=== PATIENT | male | born 1980 | race Hispanic/Latino ===

== ENCOUNTER 2018-10-18 17:06 | Emergency (ER) | payer OTHER ==
[2018-10-18 17:37] LABS: APPEARANCE,URINE Clear (CLEAR); BILIRUBIN,URINE Negative (NEGATIVE); COLOR,URINE Dark Yellow (YELLOW); GLUCOSE, URINE (UA) Negative (NEGATIVE); KETONES,URINE Negative (NEGATIVE); LEUKOCYTE ESTERASE ,URINE Negative (NEGATIVE); NITRATE,URINE Negative (NEGATIVE); OCCULT BLOOD,URINE Negative (NEGATIVE); PH,URINE 6.5 (5.0-8.0); PROTEIN,URINE POS 1+ mg/dL (NEGATIVE)
[2018-10-18 17:41] LABS: BASOPHILS % (AUTO) 0.9 % (0.0-5.0); EOSINOPHILS % (AUTO) 0.7 % (0.0-8.0); LYMPHOCYTES % (AUTO) 28.5 % (21.0-51.0); MEAN CORPUSCULAR HGB CONC 34.8 g/dL (32.0-36.0); MEAN CORPUSCULAR VOLUME 97.7 fL (79-99); MONOCYTES % (AUTO) 7.1 % (3.0-13.0); NEUTROPHILS % (AUTO) 62.8 % (40.0-77.0); PLATELET COUNT (AUTO) 171 K/uL (130-400); RED BLOOD CELL COUNT(AUTO) 4.92 MIL/uL (4.50-6.20); RED CELL DISTRIBUTION WIDTH 15.3 % (11.0-15.5); WHITE BLOOD COUNT (AUTO) 6.8 K/uL (4.8-10.8)
[2018-10-18 17:42] LABS: CARBON DIOXIDE 26 mmol/L (21-32); CHLORIDE 102 mmol/L (101-111); CREATININE 0.9 mg/dL (0.5-1.5); GLOMERULAR FILTR. RATE CALC 100 mL/min (>60); GLUCOSE,RANDOM 161 mg/dL (70-105); POTASSIUM 3.2 mmol/L (3.5-5.1); SODIUM SERUM 142 mmol/L (136-145); UREA NITROGEN, BLOOD 12 mg/dL (7-18)
[2018-10-18 17:45] LABS: AMPHET/METH SCREEN,URINE NEGATIVE (NEGATIVE); BARBITURATE SCREEN, URINE NEGATIVE (NEGATIVE); BENZODIAZEPINES SCREEN,URINE NEGATIVE (NEGATIVE); CANNABINOID SCREEN,URINE POSITIVE (NEGATIVE); COCAINE SCREEN,URINE NEGATIVE (NEGATIVE); OPIATE SCREEN,URINE NEGATIVE (NEGATIVE); PHENCYCLIDINE SCREEN,URINE NEGATIVE (NEGATIVE)
[2018-10-18 17:48] LABS: BACTERIA,URINE Few /HPF (None Seen); MUCUS,URINE Few LPF (None Seen); SQUAMOUS EPITHELIAL CELL,UR 0-2 /HPF (0-2)
[2018-10-18 17:55] LABS: ALANINE AMINOTRANSFERASE 127 U/L (12-78); ALBUMIN 3.9 g/dL (3.5-5.0); ASPARTATE AMINOTRANSFERASE 166 U/L (10-37); BILIRUBIN,TOTAL 1.5 mg/dL (0.2-1.0); TOTAL PROTEIN, SERUM 8.4 g/dL (6.0-8.3)
[2018-10-18 17:58] LABS: ACETAMINOPHEN < 1 mcg/mL (10-29); SALICYLATE < 2.8 mg/dL (2.8-20.0)
[2018-10-18 17:59] LABS: ALCOHOL, BLOOD 308 mg/dL (0-10); CREATINE KINASE, TOTAL 499 U/L (21-232)
[2018-10-18] MEDS ORDERED: THIAMINE HCL 100 MG/ML 2ML VIAL ONE (18:06)
[2018-10-18] MEDS ORDERED: POTASSIUM CHLORIDE 20 MEQ ERTAB PO ONE (18:07)
[2018-10-18] MEDS ORDERED: SODIUM CHLORIDE 0.9% 1000ML 1,000 ML IV ONE (18:07)
[2018-10-18] MEDS ORDERED: ONDANSETRON HCL 4 MG/2 ML VIAL ONE (22:59)
[2018-10-19] MEDS ORDERED: ONDANSETRON HCL 4 MG/2 ML VIAL ONE (09:44)
== END 2018-10-19 13:47 | disposition home or self-care (01) ==
LOC: EDH 17:06
DX: F10.10 Alcohol abuse, uncomplicated (principal); F33.8 Other recurrent depressive disorders; F41.9 Anxiety disorder, unspecified; I10 Essential (primary) hypertension; F20.9 Schizophrenia, unspecified; Z72.0 Tobacco use; Z88.1 Allergy status to other antibiotic agents; Y90.9 Presence of alcohol in blood, level not specified
CPT/HCPCS: 36415 ×2; 80053; 80305; 81001; 82550; 85025; 93005; 96374; 96375; 96376; 99285; G0480 ×4; G0481; J2405 ×2; J3411; J7030

== ENCOUNTER 2019-04-16 10:41 | Emergency (ER) | payer OTHER ==
[2019-04-16 11:13] LABS: CARBON DIOXIDE 30 mmol/L (21-32); CHLORIDE 103 mmol/L (101-111); GLOMERULAR FILTR. RATE CALC 88 mL/min (>60); GLUCOSE,RANDOM 185 mg/dL (70-105); POTASSIUM 3.3 mmol/L (3.5-5.1); SODIUM SERUM 144 mmol/L (136-145); UREA NITROGEN, BLOOD 15 mg/dL (7-18)
[2019-04-16 11:17] LABS: ALANINE AMINOTRANSFERASE 47 U/L (12-78); ALBUMIN 4.2 g/dL (3.5-5.0); AMMONIA 24 umol/L (11-32); ASPARTATE AMINOTRANSFERASE 45 U/L (10-37); BILIRUBIN,TOTAL 0.8 mg/dL (0.2-1.0); TOTAL PROTEIN, SERUM 8.5 g/dL (6.0-8.3)
[2019-04-16 11:24] LABS: SALICYLATE < 2.8 mg/dL (2.8-20.0)
[2019-04-16 11:25] LABS: ACETAMINOPHEN 32 mcg/mL (10-29)
[2019-04-16 11:37] LABS: BASOPHILS % (AUTO) 0.5 % (0.0-5.0); EOSINOPHILS % (AUTO) 0.8 % (0.0-8.0); LYMPHOCYTES % (AUTO) 27.9 % (21.0-51.0); MEAN CORPUSCULAR HEMOGLOBIN 30.5 pg (27.0-33.0); MEAN CORPUSCULAR HGB CONC 35.4 g/dL (32.0-36.0); MEAN CORPUSCULAR VOLUME 86.1 fL (79-99); MONOCYTES % (AUTO) 4.3 % (3.0-13.0); NEUTROPHILS % (AUTO) 65.9 % (40.0-77.0); PLATELET COUNT (AUTO) 233 K/uL (130-400); RED BLOOD CELL COUNT(AUTO) 5.34 MIL/uL (4.50-6.20); RED CELL DISTRIBUTION WIDTH 13.5 % (11.0-15.5); WHITE BLOOD COUNT (AUTO) 9.8 K/uL (4.8-10.8)
[2019-04-16 11:39] LABS: APPEARANCE,URINE Clear (CLEAR); BILIRUBIN,URINE Negative (NEGATIVE); COLOR,URINE Dark Yellow (YELLOW); GLUCOSE, URINE (UA) Negative (NEGATIVE); KETONES,URINE Trace mg/dL (NEGATIVE); LEUKOCYTE ESTERASE ,URINE Negative (NEGATIVE); NITRATE,URINE Negative (NEGATIVE); OCCULT BLOOD,URINE Negative (NEGATIVE); PH,URINE 5.5 (5.0-8.0); PROTEIN,URINE POS 2+ mg/dL (NEGATIVE)
[2019-04-16 11:41] LABS: AMPHET/METH SCREEN,URINE NEGATIVE (NEGATIVE); BARBITURATE SCREEN, URINE NEGATIVE (NEGATIVE); BENZODIAZEPINES SCREEN,URINE NEGATIVE (NEGATIVE); CANNABINOID SCREEN,URINE NEGATIVE (NEGATIVE); COCAINE SCREEN,URINE NEGATIVE (NEGATIVE); OPIATE SCREEN,URINE NEGATIVE (NEGATIVE); PHENCYCLIDINE SCREEN,URINE NEGATIVE (NEGATIVE)
[2019-04-16] MEDS ORDERED: SODIUM CHLORIDE 0.9% 1000ML 2,000 ML IV ONE (11:55)
[2019-04-16 12:02] LABS: BACTERIA,URINE Rare /HPF (None Seen); RBC,URINE 0-1 /HPF (0-1); SQUAMOUS EPITHELIAL CELL,UR Rare /HPF (0-2); WBC,URINE 0-1 /HPF (0-1)
[2019-04-16 12:03] LABS: MUCUS,URINE Many LPF (None Seen)
[2019-04-16] MEDS ORDERED: DIPHENHYDRAMINE HCL 25 MG CAPSULE ONE (16:47)
== END 2019-04-16 20:29 | disposition home or self-care (01) ==
LOC: EDH 10:41
DX: F10.129 Alcohol abuse with intoxication, unspecified (principal); F32.89 Other specified depressive episodes
CPT/HCPCS: 36415; 80053; 80305; 81001; 82140; 84484; 85025; 93005; 99284; G0480 ×4; G0481; J7030; Q0163

== ENCOUNTER 2023-04-06 13:30 | Emergency (ER) | payer OTHER ==
[~2023-04-06] VITALS: Ht 172.7 cm; Wt 99.8 kg
[2023-04-06 13:57] LABS: BASOPHILS # (AUTO) 0.03 K/uL (0.00-0.20); BASOPHILS % (AUTO) 0.7 % (0.0-5.0); EOSINOPHILS # (AUTO) 0.07 K/uL (0.00-0.70); EOSINOPHILS % (AUTO) 1.7 % (0.0-8.0); HEMATOCRIT 44.3 % (42-54); IMMATURE GRANULOCYTE ABSOLUTE 0.01 K/uL (0-1); LYMPHOCYTES # (AUTO) 1.6 K/uL (1.0-4.8); LYMPHOCYTES % (AUTO) 38.8 % (21.0-51.0); MEAN CORPUSCULAR HEMOGLOBIN 33.1 pg (27.0-33.0); MEAN CORPUSCULAR HGB CONC 35.9 g/dL (32.0-36.0); MEAN CORPUSCULAR VOLUME 92.1 fL (79-99); MONOCYTES # (AUTO) 0.4 K/uL (0.1-1.0); NEUTROPHILS # (AUTO) 2.1 K/uL (1.8-7.7); NEUTROPHILS % (AUTO) 49.6 % (40.0-77.0); PLATELET COUNT (AUTO) 184 K/uL (130-400); RED BLOOD CELL COUNT(AUTO) 4.81 MIL/uL (4.50-6.20); RED CELL DISTRIBUTION WIDTH 11.9 % (11.0-15.5); WHITE BLOOD COUNT (AUTO) 4.2 K/uL (4.8-10.8)
[2023-04-06 14:39] LABS: CARBON DIOXIDE 25 mmol/L (21-32); CHLORIDE 98 mmol/L (101-111); CREATININE 0.7 mg/dL (0.5-1.5); GLOMERULAR FILTR. RATE CALC 117 mL/min (>90); GLUCOSE,RANDOM 135 mg/dL (70-105); POTASSIUM 3.4 mmol/L (3.5-5.1); SODIUM SERUM 138 mmol/L (136-145); UREA NITROGEN, BLOOD 16 mg/dL (7-18)
[2023-04-06] MEDS: 0.9%NACL 1000ML 1,000 ML IV SCH (14:41)
[2023-04-06 14:50] LABS: ALANINE AMINOTRANSFERASE 121 U/L (12-78); ALBUMIN 3.9 g/dL (3.5-5.0); ASPARTATE AMINOTRANSFERASE 201 U/L (10-37); BILIRUBIN,TOTAL 1.5 mg/dL (0.2-1.0); TOTAL PROTEIN, SERUM 8.5 g/dL (6.0-8.3)
[2023-04-06 14:54] LABS: ACETAMINOPHEN < 1 mcg/mL (10-29); SALICYLATE < 2.8 mg/dL (2.8-20.0)
[2023-04-06 14:57] LABS: ALCOHOL, BLOOD 408 mg/dL (0-10); CREATINE KINASE, TOTAL 538 U/L (21-232)
[2023-04-06 15:58] LABS: ADD UA MICROSCOPIC YES; APPEARANCE,URINE CLEAR (CLEAR); BILIRUBIN,URINE NEGATIVE (NEGATIVE); COLOR,URINE YELLOW (YELLOW); GLUCOSE, URINE (UA) NEGATIVE (NEGATIVE); KETONES,URINE 5 mg/dL (NEGATIVE); LEUKOCYTE ESTERASE ,URINE NEGATIVE Leu/uL (NEGATIVE); NITRATE,URINE NEGATIVE (NEGATIVE); PROTEIN,URINE 50 mg/dL (NEGATIVE)
[2023-04-06 16:00] LABS: MUCUS,URINE RARE LPF (None Seen)
[2023-04-06 16:04] LABS: AMPHET/METH SCREEN,URINE POSITIVE (NEGATIVE); BARBITURATE SCREEN, URINE NEGATIVE (NEGATIVE); BENZODIAZEPINES SCREEN,URINE NEGATIVE (NEGATIVE); CANNABINOID SCREEN,URINE NEGATIVE (NEGATIVE); COCAINE SCREEN,URINE NEGATIVE (NEGATIVE); OPIATE SCREEN,URINE NEGATIVE (NEGATIVE); PHENCYCLIDINE SCREEN,URINE NEGATIVE (NEGATIVE)
[2023-04-06 21:57] LABS: BASOPHILS # (AUTO) 0.02 K/uL (0.00-0.20); BASOPHILS % (AUTO) 0.6 % (0.0-5.0); EOSINOPHILS # (AUTO) 0.09 K/uL (0.00-0.70); EOSINOPHILS % (AUTO) 2.6 % (0.0-8.0); HEMATOCRIT 41.6 % (42-54); IMMATURE GRANULOCYTE ABSOLUTE 0.01 K/uL (0-1); LYMPHOCYTES # (AUTO) 1.4 K/uL (1.0-4.8); LYMPHOCYTES % (AUTO) 39.1 % (21.0-51.0); MEAN CORPUSCULAR HEMOGLOBIN 32.7 pg (27.0-33.0); MEAN CORPUSCULAR HGB CONC 36.1 g/dL (32.0-36.0); MEAN CORPUSCULAR VOLUME 90.6 fL (79-99); MONOCYTES # (AUTO) 0.2 K/uL (0.1-1.0); MONOCYTES % (AUTO) 5.5 % (3.0-13.0); NEUTROPHILS # (AUTO) 1.8 K/uL (1.8-7.7); NEUTROPHILS % (AUTO) 51.9 % (40.0-77.0); PLATELET COUNT (AUTO) 166 K/uL (130-400); RED BLOOD CELL COUNT(AUTO) 4.59 MIL/uL (4.50-6.20); RED CELL DISTRIBUTION WIDTH 11.9 % (11.0-15.5); WHITE BLOOD COUNT (AUTO) 3.5 K/uL (4.8-10.8)
[2023-04-06] MEDS: 0.9%NACL 1000ML 1,000 ML IV ONE (22:00)
[2023-04-06 22:06] LABS: CREATININE 0.7 mg/dL (0.5-1.5); POTASSIUM 3.2 mmol/L (3.5-5.1)
[2023-04-06 22:19] LABS: ALBUMIN 3.7 g/dL (3.5-5.0); BILIRUBIN,TOTAL 1.5 mg/dL (0.2-1.0); TOTAL PROTEIN, SERUM 8.1 g/dL (6.0-8.3)
[2023-04-07] MEDS: LORAZEPAM 2 MG/ML 1 ML VIAL IVP ONE ×2 (00:19→05:02)
[2023-04-07] MEDS: METOCLOPRAMIDE 10 MG/2 ML VIAL IVP ONE (00:19)
[2023-04-07] MEDS: FAMOTIDINE 20MG VIAL IV ONE (00:19)
[2023-04-07] MEDS: THIAMINE HCL 100 MG/ML 2ML VIAL ONE (00:24)
[2023-04-07] MEDS: M.V.I. IV [ADULT] 10 ML, FOLIC ACID 1 MG, THIAMINE HCL 100 MG in 0.9%NACL 1000ML 1,000 ML IV SCH (00:24)
[2023-04-07] MEDS: M.V.I. IV [ADULT] 10 ML VIAL IV ONE (00:25)
[2023-04-07] MEDS: FOLIC ACID 5 MG/ML VIAL ONE (00:25)
[2023-04-07 08:48] VITALS: BP 111/69; PULSE 92; RESP 14; O2SAT 97
[2023-04-07] MEDS ORDERED: COMPOUND IV MISC 1 EACH IVSOLN MISC SCH (09:00)
== END 2023-04-07 08:52 | disposition home or self-care (01) ==
LOC: EDH 13:30
DX: R07.89 Other chest pain (principal); F10.129 Alcohol abuse with intoxication, unspecified; I10 Essential (primary) hypertension; F41.9 Anxiety disorder, unspecified; F31.9 Bipolar disorder, unspecified; F20.9 Schizophrenia, unspecified; Z88.1 Allergy status to other antibiotic agents
CPT/HCPCS: 99285; 71045; 96361; 82550 ×2; 83735; 84484 ×3; 80305; 83690; 85025 ×2; 36415 ×2; 93005; 81001; 96374; 96375; 96376; 80053 ×2; J3490 ×3; J7030; J3411 ×2; J2060 ×2; J2765; G0481

== ENCOUNTER 2024-05-04 17:54 | Emergency (ER) | payer BC ==
[~2024-05-04] VITALS: Ht 172.7 cm; Wt 111.1 kg
--- NOTE | 2024-05-04 18:01 | ERN ---
ED Note History of Present Illness Stated Complaint: PSYCH EVALUATION Chief Complaint: Psych Evaluation Time Seen by MD: 17:55 Dictation: PATIENT IS A 43-YEAR-OLD MALE COMING IN TODAY WITH COMPLAINTS OF HAVING SUICIDAL IDEATION FOR THE LAST SEVERAL DAYS, NO PLAN. HE STATES HE HAS BEEN DEPRESSED FOR A WHILE, STOPPED HIS PSYCHIATRIC MEDICATIONS A WHILE BACK. HE STATES HE CALLED [facility] AND THEN WAS REFERRED TO [facility] BECAUSE OF HIS INSURANCE, THEY TOLD HIM TO COME TO [facility] FOR MEDICAL CLEARANCE. HE ALSO STATES HE HAS BEEN DRINKING TODAY. Allergies: Coded Allergies: vancomycin (Verified Allergy, Unknown, 03/08/16) Home Meds No Active Prescriptions or Reported Meds Past Medical History Past Medical History: Anxiety, Bipolar, Hypertension, Schizophrenia Additional Past Medical Hx: SUBSTANCE ABUSE Surgical History: Other Social History: Drugs, ETOH RN Note Reviewed/Agreed w/PFSH: Yes Review of System Dictation CONSTITUTIONAL: NEGATIVE EXCEPT FOR HPI HEAD/FACE: NEGATIVE EXCEPT FOR HPI EENT: NEGATIVE EXCEPT FOR HPI RESPIRATORY: NEGATIVE EXCEPT FOR HPI GASTROINTESTINAL/ABDOMINAL: NEGATIVE EXCEPT FOR HPI GENITOURINARY: NEGATIVE EXCEPT FOR HPI MUSCULOSKELETAL: NEGATIVE EXCEPT FOR HPI INTEGUMENTARY: NEGATIVE EXCEPT FOR HPI NEUROLOGICAL/PSYCH: NEGATIVE EXCEPT FOR HPI SUICIDAL IDEATION/DEPRESSION HEMATOLOGIC/LYMPHATIC: NEGATIVE EXCEPT FOR HPI ALL SYSTEMS NEGATIVE, EXCEPT NOTED ABOVE. 13 POINT REVIEW OF SYSTEMS ASSESSED AND ALL NEGATIVE EXCEPT FOR ABOVE. Initial Vital Sign VS Vital Signs Date Time Temp Pulse Resp B/P (MAP) Pulse Ox O2 Delivery O2 Flow Rate FiO2 05/04/24 17:57 98.1 102 20 133/77 96 Room Air 0 05/04/24 20:00 21 Physical Exam Dictation VITAL SIGNS REVIEWED GENERAL APPEARANCE: ALERT, ORIENTED X 3, MILD ACUTE DISTRESS, WELL DEVELOPED, NOURISHED. TEARFUL HEAD AND FACE: NON-TRAUMATIC. EYES: PERRL, PINK CONJUNCTIVAS, EYELID NO TRAUMA, ANTERIOR CHAMBER WITH ARCUS SENILIS. EARS: PINNAS INTACT AND NO SIGNS OF TRAUMA OR ERYTHEMA EAR CANALS CLEAR AND NO DISCHARGE TM NO ERYTHEMA NOSE: NO DISCHARGE, NO BLEEDING. OROPHARYNX: MOUTH NORMAL, TONGUE PINK, PHARYNX CLEAR,NO ERYTHEMA, TONSILS NO EXUDATES, NO ABSCESSES NOTED, MUCOUS MEMBRANE MOIST NECK: SUPPLE, NON-TENDER, NO THYROMEGALY, NO MASSES, NO JVD, NO BRUITS BREAST:DEFERRED CHEST:NO TENDERNESS, NO CREPITUS, NO PARADOXICAL MOVEMENT, NO RETRACTIONS LUNGS:CLEAR, WELL-VENTILATED, SYMMETRIC, NO RALES, NO WHEEZING, NO RHONCHI, NO STRIDOR, GOOD BREATH SOUNDS BILATERALLY HEART: REGULAR RATE, REGULAR RHYTHM, NO MURMUR, NO GALLOPS VASCULAR: NO PERIPHERAL EDEMA, ABDOMEN: SOFT, POSITIVE BOWEL SOUNDS, NONDISTENDED, NO GUARDING, NONTENDER, NO REBOUND, NO MASSES NO HEPATOMEGALY, NO SPLENOMEGALY, NO LEON'S SIGN, NO HERNIAS. RECTAL: DEFERRED GENITAL: DEFERRED NEUROLOGICAL: NORMAL SPEECH, MOTOR FUNCTION INTACT, SENSORY FUNCTION INTACT PATIENT VOICES DEPRESSION WITH SUICIDAL IDEATION, NO PLAN. MUSCULOSKELETAL: NECK NONTENDER, FULL RANGE OF MOTION, BACK NONTENDER, FULL RANGE OF MOTION, EXTREMITIES: NONTENDER, FULL RANGE OF MOTION SKIN: COLOR PINK, DRY, NO TURGOR, NO RASH, NO LACERATIONS, NO ABRASIONS, NO CONTUSIONS. LYMPHATIC: DEFERRED Results (Laboratory/Radiology) Laboratory/Radiology Laboratory Tests Test 05/04/24 18:16 05/04/24 18:17 05/05/24 08:21 White Blood Count 6.6 K/uL (4.8-10.8) Red Blood Count 4.17 MIL/uL (4.50-6.20) L Hemoglobin 13.8 g/dL (14.0-18.0) L Hematocrit 37.9 % (42-54) L Mean Corpuscular Volume 90.9 fL (79-99) Mean Corpuscular Hemoglobin 33.1 pg (27.0-33.0) H Mean Corpuscular Hemoglobin Concent 36.4 g/dL (32.0-36.0) H Red Cell Distribution Width 12.2 % (11.0-15.5) Platelet Count 206 K/uL (130-400) Mean Platelet Volume 9.4 fL (7.5-10.5) Immature Granulocyte % (Auto) 0.2 % (0-1) Neutrophils (%) (Auto) 56.3 % (40.0-77.0) Lymphocytes (%) (Auto) 29.9 % (21.0-51.0) Monocytes (%) (Auto) 11.9 % (3.0-13.0) Eosinophils (%) (Auto) 1.2 % (0.0-8.0) Basophils (%) (Auto) 0.5 % (0.0-5.0) Neutrophils # (Auto) 3.7 K/uL (1.8-7.7) Lymphocytes # (Auto) 2.0 K/uL (1.0-4.8) Monocytes # (Auto) 0.8 K/uL (0.1-1.0) Eosinophils # (Auto) 0.08 K/uL (0.00-0.70) Basophils # (Auto) 0.03 K/uL (0.00-0.20) Absolute Immature Granulocyte (auto 0.01 K/uL (0-1) Nucleated Red Blood Cells 0.0 % (0.0-0.19) Red Blood Cell Morphology See comments Sodium Level 130 mmol/L (136-145) L Potassium Level 2.8 mmol/L (3.5-5.1) *L 3.5 mmol/L (3.5-5.1) Chloride Level 92 mmol/L (101-111) L Carbon Dioxide Level 26 mmol/L (21-32) Blood Urea Nitrogen 7 mg/dL (7-18) Creatinine 1.2 mg/dL (0.5-1.3) Glomerular Filtration Rate Calc 76 mL/min (>90) Random Glucose 209 mg/dL (70-105) H Total Calcium 8.5 mg/dL (8.5-10.1) Total Creatine Kinase 321 U/L (21-232) #H Salicylates Level < 2.8 mg/dL (2.8-20.0) L Acetaminophen Level < 1 mcg/mL (10-29) L Serum Alcohol 352 mg/dL (0-10) H < 3 mg/dL (0-10) Urine Color YELLOW (YELLOW) Urine Appearance CLEAR (CLEAR) Urine pH 6.0 (5.0-8.0) Urine Specific [place] 1.009 (1.001-1.031) Urine Protein 20 mg/dL (NEGATIVE) H Urine Glucose (UA) NEGATIVE mg/dL (NEGATIVE) Urine Ketones NEGATIVE mg/dL (NEGATIVE) Urine Occult Blood NEGATIVE (NEGATIVE) Urine Nitrate NEGATIVE (NEGATIVE) Urine Bilirubin NEGATIVE mg/dL (NEGATIVE) Urine Urobilinogen 2.0 mg/dL (0.2-1.0) H Urine Leukocyte Esterase NEGATIVE [place]/uL Urine RBC 0-1 /HPF (0-1) Urine WBC 2-5 /HPF (0-1) H Urine Squamous Epithelial Cells RARE /HPF (0-2) Urine Bacteria None /HPF (None Seen) Urine Hyaline Casts 2-5 /LPF (0-1 /LPF) H Urine Opiates Screen NEGATIVE (NEGATIVE) Urine Barbiturates Screen NEGATIVE (NEGATIVE) Urine Phencyclidine Screen NEGATIVE (NEGATIVE) Urine Amphetamines Screen NEGATIVE (NEGATIVE) Urine Benzodiazepines Screen NEGATIVE (NEGATIVE) Urine Cocaine Screen NEGATIVE (NEGATIVE) Urine Marijuana (THC) Screen NEGATIVE (NEGATIVE) Labs Reviewed?: Yes ED Course ED Course Orders Procedure Category Date Status Time Drug Screen Urine LAB 05/04/24 Complete 17:59 Suicide Precautions CPOE 05/04/24 Transmitted 17:59 Cbc With Differential LAB 05/04/24 Complete 17:59 Alcohol, Blood LAB 05/04/24 Complete 17:59 Salicylate LAB 05/04/24 Complete 17:59 Acetaminophen LAB 05/04/24 Complete 17:59 Urinalysis Profile LAB 05/04/24 Complete 17:59 Creatine Kinase, Total LAB 05/04/24 Complete 17:59 Basic Metabolic Panel LAB 05/04/24 Complete 17:59 Potassium Bicarb/Cit PHA 05/04/24 Complete Ac 25meq (K-Lyte Ta 19:00 0.9%Nacl 1000ml (Ns PHA 05/04/24 Complete 1000ml) 19:00 Lorazepam 2 Mg PHA 05/04/24 Complete (Ativan) 19:00 Ondansetron 4mg Inj PHA 05/04/24 Complete (Zofran 4mg Inj) 19:30 Famotidine 20mg Vial PHA 05/04/24 Complete (Pepcid 20mg Vial) 19:30 Lorazepam 2 Mg PHA 05/05/24 Complete (Ativan) 04:00 Diazepam 5 Mg/Ml 2 Ml PHA 05/05/24 Complete Syg (Valium 5 Mg/M 04:30 Ondansetron 4mg Inj PHA 05/05/24 Complete (Zofran 4mg Inj) 05:00 Alcohol, Blood LAB 05/05/24 Complete 08:15 Diazepam 5 Mg/Ml 2 Ml PHA 05/05/24 Complete Syg (Valium 5 Mg/M 08:30 Potassium LAB 05/05/24 Complete 09:28 Current Medications Medications (Trade) Dose Ordered Sig/Yumiko Route PRN Reason Start Time Stop Time Status Last Admin Dose Admin Diazepam (VALium 5 MG/ML 2 ML SYG) 5 mg ONCE ONCE IVP 05/05/24 04:30 05/05/24 04:31 DC 05/05/24 04:35 Diazepam (VALium 5 MG/ML 2 ML SYG) 5 mg ONCE ONCE IVP 05/05/24 08:30 05/05/24 08:31 DC 05/05/24 08:49 Famotidine (Pepcid 20mg Vial) 20 mg ONCE ONCE IV 05/04/24 19:30 05/04/24 19:31 DC 05/04/24 19:30 Lorazepam (AtiVAN) 1 mg ONCE ONCE IVP 05/05/24 04:00 05/05/24 04:01 DC Lorazepam (AtiVAN) 2 mg ONCE ONCE PO 05/04/24 19:00 05/04/24 19:01 DC 05/04/24 19:21 Ondansetron HCl (zoFRAN 4MG INJ) 4 mg ONCE ONCE IVP 05/04/24 19:30 05/04/24 19:31 DC 05/04/24 19:30 Ondansetron HCl (zoFRAN 4MG INJ) 4 mg ONCE ONCE IVP 05/05/24 05:00 05/05/24 05:01 DC 05/05/24 04:40 Potassium Bicarbonate (K-Lyte Tablet Eff 25 Meq Tablet.eff) 25 meq ONCE ONCE PO 05/04/24 19:00 05/04/24 19:01 DC 05/04/24 18:45 Sodium Chloride 1,000 ml @ 0 mls/hr ONCE ONCE IV 05/04/24 19:00 05/04/24 19:01 DC 05/04/24 19:21 Vital Signs Date Time Temp Pulse Resp B/P (MAP) Pulse Ox O2 Delivery O2 Flow Rate FiO2 05/05/24 08:17 98.6 97 20 113/65 97 Room Air* 0 05/05/24 06:27 98.1 88 16 132/80 97 Room Air* 0 05/05/24 04:27 98.1 90 18 131/81 96 Room Air* 0 05/05/24 02:27 98.1 92 16 128/74 96 Room Air* 0 05/04/24 20:00 98.1 96 18 138/76 96 Room Air* 0 05/04/24 17:57 98.1 102 20 133/77 96 Room Air 0 Medical Decision Making MDM MDM: DIFFERENTIAL DIAGNOSIS: SUICIDAL IDEATION/DEPRESSION/ALCOHOL ABUSE/DRUG ABUSE/ELECTROLYTE IMBALANCE/DEHYDRATION RATIONALE: TESTS CONSIDERED AND ORDERED SECONDARY TO SHARED DECISION MAKING INCLUDE: LABS, AND RADIOLOGY PREVIOUS OUTSIDE RECORDS REVIEWED: OLD ER VISITS. REVIEWED RISK OF COMPLICATION AND/OR MORBIDITY OR MORTALITY OF PATIENT MANAGEMENT: NONE MEDICATIONS-PER MEDICATION RECONCILIATION NEED FOR HOSPITALIZATION: PATIENT DOES MEET CRITERIA FOR HOSPITALIZATION. ONCE PATIENT IS LEGALLY SOBER, HE WILL NEED TROPICAL [place] EVALUATION NEED FOR EMERGENCY MAJOR/MINOR SURGERY: NO THERE ARE NO SOCIAL CONCERNS WITH THIS PATIENT. DAILY ALCOHOL ABUSE PRESCRIPTION DRUG MANAGEMENT PRESCRIPTIONS WILL INCLUDE SYMPTOMATIC CARE PATIENT'S PRIOR EXTERNAL MEDICAL RECORDS FROM OTHER ER VISITS WERE REVIEWED BY ME INDICATED. PRIOR TESTING AND RESULTS FROM PREVIOUS VISITS WERE REVIEWED. PRIOR TESTS WERE TAKEN INTO ACCOUNT WITH MEDICAL DECISION MAKING AND RESOURCE UTILIZATION, INDEPENDENT HISTORIAN/HISTORIANS WERE USED TO OBTAIN COMPLETE MEDICAL HISTORY. I INDEPENDENTLY INTERPRETED THE TEST THAT WERE PERFORMED, RESULTS WERE REVIEWED BY ME AND CONSIDERED FINDINGS ON RADIOLOGY IF ORDERED. MEDICAL MANAGEMENT AND EXAMINATION INTERPRETATION DISCUSSIONS WERE HAD BY ME WITH OTHER QUALIFIED HEALTHCARE PROFESSIONALS INDICATED FOR THE PATIENT'S CARE. Patient was medically cleared for evaluation by mary. Patient was monitored in the ER for about 24 hours. Patient had minor withdrawal symptoms, CIWA eight. Given benzodiazepines multiple times. CIWA improved. Tropical of the head with the patient, he was not a candidate for inpatient treatment. We will DC to PCP follow up. DX & DISP Disposition: Discharge Departure Impression: Primary Impression: Suicidal ideation Additional Impressions: Acute alcohol intoxication, Hyponatremia, Elevated CK-MB level, Dehydration, Hypokalemia, Uncontrolled diabetes mellitus Critical Time: 30 minutes (Critical Care Procedure NoteAuthorized and Performed by: meTotal critical care time: Approximately 36 minutesDue to a high probability of clinically significant, life threatening deterioration, the patient required my highest level of preparedness to intervene emergently and I personally spent this critical care time directly and personally managing the patient. This critical care time included obtaining a history; examining the patient; pulse oximetry; ordering and review of studies; arranging urgent treatment with development of a management plan; evaluation of patient's response to treatment; frequent reassessment; and, discussions with other providers.This critical care time was performed to assess and manage the high probability of imminent, life-threatening deterioration that could result in multi-organ failure. It was exclusive of separately billable procedures and treating other patients and teaching time.Please see MDM section and the rest of the note for further information on patient assessment and treatment.) Condition: Stable Scripts No Active Prescriptions or Reported Meds Additional Instructions: Please follow up as per [facility]'s safety plan. Avoid alcohol. Return to the emergency department as needed. Referrals: GERALD SANDERS (PCP) I performed a substantive portion of the visit. I have reviewed and personally made and approve the management plan that is documented in the notes by myself with SRINIVAS/resident. I acknowledged full responsibility for the patient's management plan. WALTER BA NP May 04, 2024 18:01 KIMBERLY SHEN DO May 05, 2024 12:20
[2024-05-04 18:25] LABS: BASOPHILS # (AUTO) 0.03 K/uL (0.00-0.20); BASOPHILS % (AUTO) 0.5 % (0.0-5.0); EOSINOPHILS # (AUTO) 0.08 K/uL (0.00-0.70); EOSINOPHILS % (AUTO) 1.2 % (0.0-8.0); HEMATOCRIT 37.9 % (42-54); IMMATURE GRANULOCYTE ABSOLUTE 0.01 K/uL (0-1); LYMPHOCYTES % (AUTO) 29.9 % (21.0-51.0); MEAN CORPUSCULAR HEMOGLOBIN 33.1 pg (27.0-33.0); MEAN CORPUSCULAR HGB CONC 36.4 g/dL (32.0-36.0); MEAN CORPUSCULAR VOLUME 90.9 fL (79-99); MONOCYTES # (AUTO) 0.8 K/uL (0.1-1.0); MONOCYTES % (AUTO) 11.9 % (3.0-13.0); NEUTROPHILS # (AUTO) 3.7 K/uL (1.8-7.7); NEUTROPHILS % (AUTO) 56.3 % (40.0-77.0); PLATELET COUNT (AUTO) 206 K/uL (130-400); RED BLOOD CELL COUNT(AUTO) 4.17 MIL/uL (4.50-6.20); RED CELL DISTRIBUTION WIDTH 12.2 % (11.0-15.5); WHITE BLOOD COUNT (AUTO) 6.6 K/uL (4.8-10.8)
[2024-05-04 18:38] LABS: ALCOHOL, BLOOD 352 mg/dL (0-10); CARBON DIOXIDE 26 mmol/L (21-32); CHLORIDE 92 mmol/L (101-111); CREATINE KINASE, TOTAL 321 U/L (21-232); CREATININE 1.2 mg/dL (0.5-1.3); GLOMERULAR FILTR. RATE CALC 76 mL/min (>90); GLUCOSE,RANDOM 209 mg/dL (70-105); SODIUM SERUM 130 mmol/L (136-145); UREA NITROGEN, BLOOD 7 mg/dL (7-18)
[2024-05-04 18:39] LABS: ACETAMINOPHEN < 1 mcg/mL (10-29); SALICYLATE < 2.8 mg/dL (2.8-20.0)
[2024-05-04 18:41] LABS: POTASSIUM 2.8 mmol/L (3.5-5.1)
[2024-05-04] MEDS: PoTASSium BIcarbonate/CIT AC 25 MEQ TABLET.EFF PO ONE (18:45)
[2024-05-04 18:48] LABS: APPEARANCE,URINE CLEAR (CLEAR); BILIRUBIN,URINE NEGATIVE (NEGATIVE); COLOR,URINE YELLOW (YELLOW); GLUCOSE, URINE (UA) NEGATIVE (NEGATIVE); KETONES,URINE NEGATIVE (NEGATIVE); LEUKOCYTE ESTERASE ,URINE NEGATIVE Leu/uL (NEGATIVE); NITRATE,URINE NEGATIVE (NEGATIVE); OCCULT BLOOD,URINE NEGATIVE (NEGATIVE); PROTEIN,URINE 20 mg/dL (NEGATIVE)
[2024-05-04 18:56] LABS: ADD UA MICROSCOPIC YES; AMPHET/METH SCREEN,URINE NEGATIVE (NEGATIVE); BARBITURATE SCREEN, URINE NEGATIVE (NEGATIVE); BENZODIAZEPINES SCREEN,URINE NEGATIVE (NEGATIVE); CANNABINOID SCREEN,URINE NEGATIVE (NEGATIVE); COCAINE SCREEN,URINE NEGATIVE (NEGATIVE); OPIATE SCREEN,URINE NEGATIVE (NEGATIVE); PHENCYCLIDINE SCREEN,URINE NEGATIVE (NEGATIVE)
[2024-05-04 18:59] LABS: MUCUS,URINE RARE LPF (None Seen); RBC,URINE 0-1 /HPF (0-1); SQUAMOUS EPITHELIAL CELL,UR RARE /HPF (0-2)
[2024-05-04] MEDS: 0.9%NACL 1000ML 1,000 ML IV ONE (19:21)
[2024-05-04] MEDS: LORazepam 2 MG TABLET PO ONE (19:21)
--- NOTE | 2024-05-04 19:23 | NUR ---
WALTER SENIOR INVESTMENT MANAGER NOTIFIED PATIENT NAUSEATED. PENDING ORDERS
[2024-05-04] MEDS: ondanSETRON 4MG INJ IVP ONE (19:30)
[2024-05-04] MEDS: FAMOTIDINE 20MG VIAL IV ONE (19:30)
--- NOTE | 2024-05-05 03:36 | NUR ---
MEDICATION REQUESTED FROM PHARMACY
[2024-05-05] MEDS: diazePAM 5 MG/ML 2 ML SYG IVP ONE ×2 (04:35→08:49)
[2024-05-05] MEDS: ondanSETRON 4MG INJ IVP ONE (04:40)
[2024-05-05] MEDS: LORazepam 2 MG/ML 1 ML VIAL IVP ONE (04:40)
--- NOTE | 2024-05-05 06:57 | NUR ---
report given to Nydia SÁNCHEZ
--- NOTE | 2024-05-05 09:25 | NUR ---
SPOKE TO TROPICAL CRISIS HOTLINE WORKER, LATRELL. SHE WILL CONTACT [employer] INSTRUCTORGRANTS AND CONTRACTS ASSISTANT TO COME GENARO MARTINEZ
--- NOTE | 2024-05-05 10:49 | NUR ---
TROPICAL SCREENER AT BEDSIDE.
--- NOTE | 2024-05-05 12:14 | NUR ---
PER TROPICAL SCREENER, PT DOES NOT MEET CRITERIA FOR ADMISSION. DR. SHEN MADE AWARE.
[2024-05-05] MEDS: LISINOPRIL 20 MG TABLET PO ONE (12:46)
[2024-05-05] MEDS: LISINOPRIL 20 MG TABLET ONE (12:46)
[2024-05-05 13:06] VITALS: BP 142/89; PULSE 95; RESP 19; TEMP 98.6; O2SAT 98
== END 2024-05-05 13:07 | disposition home or self-care (01) ==
LOC: EDH 17:54
DX: R45.851 Suicidal ideations (principal); F10.129 Alcohol abuse with intoxication, unspecified; E87.1 Hypo-osmolality and hyponatremia; E86.0 Dehydration; E87.6 Hypokalemia; E11.65 Type 2 diabetes mellitus with hyperglycemia; R74.8 Abnormal levels of other serum enzymes; F20.9 Schizophrenia, unspecified; F31.9 Bipolar disorder, unspecified; F41.9 Anxiety disorder, unspecified; I10 Essential (primary) hypertension; Z79.899 Other long term (current) drug therapy; Z88.1 Allergy status to other antibiotic agents; Z98.890 Other specified postprocedural states
CPT/HCPCS: 99285; 96374; 96361; 96375 ×2; 82550; 80048; 80305; 85025; 36415 ×2; 84132; 81001; 96376; G0481; J3490; J7030; J2405 ×2; J3360 ×2; 99284